=== PATIENT | female | born 1960 | race Caucasian/White ===

== ENCOUNTER → 2024-02-15 07:53 | Outpatient (REF) | payer OTHER, SELFPAY | LOC: WDC 07:53 | PROVIDERS: ATTENDING PHYSICIAN Nurse Practitioner Adult Health; FAMILY PHYSICIAN Family Medicine | DX: R92.2 Inconclusive mammogram (principal) | CPT/HCPCS: 76641 ==

== ENCOUNTER → 2024-06-06 13:14 | Outpatient (REF) | payer OTHER, SELFPAY | LOC: HWRAD 13:14 | PROVIDERS: ATTENDING PHYSICIAN Family Medicine; REFERRING PHYSICIAN Nurse Practitioner Adult Health | DX: Z13.820 Encounter for screening for osteoporosis (principal) | CPT/HCPCS: 77080 ==

== ENCOUNTER → 2024-07-22 15:28 | Outpatient (REF) | payer OTHER, SELFPAY | LOC: PAVMRI 15:28 | PROVIDERS: ATTENDING PHYSICIAN Orthopaedic Surgery; FAMILY PHYSICIAN Family Medicine | DX: M25.512 Pain in left shoulder (principal); G89.29 Other chronic pain | CPT/HCPCS: 73221 ==

== ENCOUNTER → 2024-09-13 12:06 | Outpatient (REF) | payer OTHER, SELFPAY | LOC: WDC 12:06 | PROVIDERS: ATTENDING PHYSICIAN Nurse Practitioner Adult Health | DX: Z12.31 Encounter for screening mammogram for malignant neoplasm of breast (principal); Z80.3 Family history of malignant neoplasm of breast | CPT/HCPCS: 77063; 77067 ==